=== PATIENT | female | born 1975 | race American Indian/Alaskan Native ===

== ENCOUNTER 2017-01-29 10:30 | Inpatient (IN) | payer OTHER ==
[2017-01-29 11:29] LABS: Basophils % (Auto) 0.8 % (0.0-1.8); Mean Corpuscular HGB Conc 30 % (30-34); Platelet Count 303 K/mm3 (140-440); Red Cell Distribution Width 17.6 % (13.2-15.2); White Blood Count 13.7 K/mm3 (4.5-11.0)
[2017-01-29 11:34] LABS: Bilirubin,Urine NEG (Negative); Blood,Urine MOD (Negative); Ketones,Urine TR mg/dL (Negative); Leukocyte Esterase,Urine NEG (Negative); Mucus,Urine 1+ /HPF; Nitrite,Urine NEG (Negative); Urobilinogen,Urine < 2.0 mg/dL (<2.0)
[2017-01-29 11:35] LABS: Hematocrit 35.5 % (30.3-42.9); Hemoglobin 10.5 gm/dl (10.1-14.3)
[2017-01-29 11:36] LABS: Mean Corpuscular Hemoglobin 21 pg (28-32); Mean Corpuscular Volume 70 fl (79-97)
[2017-01-29 11:40] LABS: Anion Gap 18 mmol/L; Blood Urea Nitrogen 6 mg/dL (7-17); Calcium 9.6 mg/dL (8.4-10.2); Carbon Dioxide 23 mmol/L (22-30); Chloride 98.7 mmol/L (98-107); Glucose 126 mg/dL (65-100); Potassium 3.6 mmol/L (3.6-5.0); Sodium 136 mmol/L (137-145)
[2017-01-29] MEDS ORDERED: NACL 0.9% 1000 ML 1,000 ML IV ONE (12:43)
[2017-01-29] MEDS ORDERED: ZOFRAN IV ONE (12:43)
[2017-01-29] MEDS ORDERED: SUBLIMAZE IV ONE (12:43)
[2017-01-29] MEDS ORDERED: NACL ONE (12:46)
--- NOTE | 2017-01-29 12:51 | Emergency Department Report ---
HPI - General Chief Complaint: Nausea/Vomiting/Diarrhea Time Seen by Provider: 01/29/17 12:34 - HPI HPI: Room 1 The patient is a 41-year-old female presenting with a chief complaint of abdominal pain. Patient states her symptoms began this morning at 03:00. Patient states she developed upper abdominal pain associated with nausea vomiting and diarrhea. Patient describes pain as sharp in nature and states that it does not radiate. Patient denies any history of fever. Patient denies sick contacts. Patient denies dysuria or hematuria. The patient currently gives her pain a score of 10/10 Location: Abdomen Duration: Constant since 03:00 Quality: Sharp Severity: 10/10 Modifying factors: [see above] Context: [see above] Mode of transportation: [not driving] ED Past Medical Hx - Past Medical History Previous Medical History?: Yes Hx Headaches / Migraines: Yes - Surgical History Past Surgical History?: Yes Hx Cholecystectomy: Yes Additional Surgical History: 1994, 1998, 2000. Gall bladder 2001 - Family History Family history: no significant - Social History Smoking Status: Current Every Day Smoker Substance Use Type: Alcohol (occasional) - Medications Home Medications: Home Medications Medication Instructions Recorded Confirmed Last Taken Type Pantoprazole [Protonix TAB] 40 mg PO QHS #30 tablet 10/12/15 Unknown Rx ED Review of Systems ROS: Stated complaint: N/V Other details as noted in HPI Comment: All other systems reviewed and negative Constitutional: denies: chills, fever Eyes: denies: eye pain, eye discharge, vision change ENT: denies: ear pain, throat pain Respiratory: denies: cough, shortness of breath, wheezing Cardiovascular: denies: chest pain, palpitations Endocrine: no symptoms reported Gastrointestinal: abdominal pain, nausea, vomiting, diarrhea Genitourinary: denies: urgency, dysuria, discharge Musculoskeletal: denies: back pain, joint swelling, arthralgia Skin: denies: rash, lesions Neurological: denies: headache, weakness, paresthesias Psychiatric: denies: anxiety, depression Hematological/Lymphatic: denies: easy bleeding, easy bruising Physical Exam - Physical Exam Vital Signs: Vital Signs 01/29/17 10:48 Temperature 97.6 F Pulse Rate 53 L Respiratory 18 Rate Blood Pressure 161/89 O2 Sat by Pulse 99 Oximetry Physical Exam: GENERAL: The patient is well-developed well-nourished female lying on stretcher appearing to be in moderate discomfort. [] HEENT: Normocephalic. Atraumatic. Extraocular motions are intact. Patient has moist mucous membranes. NECK: Supple. Trachea midline CHEST/LUNGS: Clear to auscultation. There is no respiratory distress noted. HEART/CARDIOVASCULAR: Regular. There is no tachycardia. There is no gallop rub or murmur. ABDOMEN: Abdomen is soft, with diffuse discomfort to palpation but no rebound or guarding.. Patient has normal bowel sounds. There is no abdominal distention. SKIN: There is no rash. There is no edema. There is no diaphoresis. NEURO: The patient is awake, alert, and oriented. The patient is cooperative. T The patient has normal speech MUSCULOSKELETAL: There is no evidence of acute injury. ED Course Vital Signs 01/29/17 10:48 Temperature 97.6 F Pulse Rate 53 L Respiratory 18 Rate Blood Pressure 161/89 O2 Sat by Pulse 99 Oximetry - Consultations Consultation #1: 01/29/17 14:[address] Murillo-will take the patient to the OR. Recommends administering Levaquin and Flagyl ED Medical Decision Making - Lab Data Result diagrams: 01/29/17 11:12 01/29/17 11:12 Laboratory Tests 01/29/17 01/29/17 01/29/17 11:12 11:12 11:12 WBC 13.7 H RBC 5.10 H Hgb 10.5 Hct 35.5 MCV 70 L MCH 21 L MCHC 30 RDW 17.6 H Plt Count 303 Lymph % (Auto) 9.4 L Norman % (Auto) 3.8 Eos % (Auto) 0.0 Baso % (Auto) 0.8 Lymph # 1.3 Norman # 0.5 Eos # 0.0 Baso # 0.1 Seg Neutrophils % 86.0 H Seg Neutrophils # 11.8 H Sodium 136 L Potassium 3.6 Chloride 98.7 Carbon Dioxide 23 Anion Gap 18 BUN 6 L Creatinine 0.6 L Estimated GFR > 60 BUN/Creatinine Ratio 10.00 Glucose 126 H Calcium 9.6 Total Bilirubin 0.4 Direct Bilirubin < 0.2 AST 22 ALT 12 Alkaline Phosphatase 78 Total Protein 8.1 Albumin 4.6 Albumin/Globulin Ratio 1.3 Amylase 107 Lipase 23 Urine Color Urine Turbidity Urine pH Ur Specific [place] Urine Protein Urine Glucose (UA) Urine Ketones Urine Blood Urine Nitrite Urine Bilirubin Urine Urobilinogen Ur Leukocyte Esterase Urine WBC (Auto) Urine RBC (Auto) U Epithel Cells (Auto) Urine Mucus Urine HCG, Qual 01/29/17 01/29/17 11:16 11:16 WBC RBC Hgb Hct MCV MCH MCHC RDW Plt Count Lymph % (Auto) Norman % (Auto) Eos % (Auto) Baso % (Auto) Lymph # Norman # Eos # Baso # Seg Neutrophils % Seg Neutrophils # Sodium Potassium Chloride Carbon Dioxide Anion Gap BUN Creatinine Estimated GFR BUN/Creatinine Ratio Glucose Calcium Total Bilirubin Direct Bilirubin AST ALT Alkaline Phosphatase Total Protein Albumin Albumin/Globulin Ratio Amylase Lipase Urine Color Yellow Urine Turbidity Clear Urine pH 7.0 Ur Specific [place] 1.019 Urine Protein 100 mg/dl Urine Glucose (UA) 50 Urine Ketones Tr Urine Blood Mod Urine Nitrite Neg Urine Bilirubin Neg Urine Urobilinogen < 2.0 Ur Leukocyte Esterase Neg Urine WBC (Auto) 2.0 Urine RBC (Auto) 15.0 U Epithel Cells (Auto) 2.0 Urine Mucus 1+ Urine HCG, Qual Negative - Radiology Data Radiology results: report reviewed (CT abdomen pelvis), image reviewed (CT abdomen pelvis) CT abdomen and pelvis (discussed with radiologist)-acute appendicitis. Appendix is dilated approximately 9 mm with surrounding stranding - Differential Diagnosis pancreatitis, gastroenteritis, colitis, Critical care attestation.: If time is entered above; I have spent that time in minutes in the direct care of this critically ill patient, excluding procedure time. ED Disposition Clinical Impression: Acute appendicitis, Acute abdominal pain Disposition: OP ADMITTED IP TO THIS HOSP Is pt being admited?: Yes Does the pt Need Aspirin: No Condition: Serious Referrals: PRIMARY CARE, [Primary Care Provider] - 3-5 Days Time of Disposition: 14:19 (surgery paged)
[2017-01-29 13:00] LABS: Alanine Aminotransferase 12 units/L (7-56); Albumin 4.6 g/dL (3.9-5); Albumin/Globulin Ratio 1.3 %; Alkaline Phosphatase 78 units/L (35-129); Amylase 107 units/L (27-131); Bilirubin,Total 0.4 mg/dL (0.1-1.2); Lipase 23 units/L (13-60); Total Protein 8.1 g/dL (6.3-8.2)
[2017-01-29 13:01] LABS: Bilirubin,Direct < 0.2 mg/dL (0-0.2)
--- NOTE | 2017-01-29 14:21 | Cat Scan Report ---
FINAL REPORT PROCEDURE: CT ABDOMEN PELVIS W CON TECHNIQUE: Computerized axial tomography of the abdomen and pelvis was performed after the IV injection of iodinated nonionic contrast. HISTORY: diffuse abnormal pain. Nausea and vomiting COMPARISON: No prior studies are available for comparison. FINDINGS: Visualized lower thorax: No significant abnormality. Liver: Normal size and attenuation. Spleen: Normal size and attenuation. Gallbladder and biliary system: The gallbladder is absent. No dilatation of the biliary ductal system.. Pancreas: Normal. Adrenals: Normal. Kidneys: Both kidneys have normal size. No hydronephrosis. No renal stones or masses. GI tract: The stomach is normal. The small bowel has a normal caliber. No obstruction, ileus or enteritis. Evaluation of the bowel is slightly limited without oral contrast. The appendix is slightly dilated up to 9 millimeters with minimal periappendiceal fat stranding. No fluid collection, abscess or free air is seen. The colon has a normal appearance.. Lymph nodes and mesentery: Normal. Vasculature: Normal. Bladder: Normal. Reproductive organs: The uterus is normal. No pelvic masses are identified. Minimal fluid in the lower pelvis is noted.. Peritoneum: Minimal fluid lower pelvis.. Musculoskeletal structures: No significant abnormality. Other: None. IMPRESSION: The appendix is dilated up to 9 millimeters with minimal periappendiceal fat stranding. Acute appendicitis is suspected. No complication at this time. No evidence of intestinal or urinary tract obstruction. Previous cholecystectomy. The above critical results are discussed with the patient's ER physician Dr. Greene, at the time of dictation 1315 central standard time on 01/29/2017
[2017-01-29] MEDS ORDERED: LEVAQUIN 500MG/100ML 500 MG/100 ML BAG IV ONE (14:27)
[2017-01-29] MEDS ORDERED: FLAGYL 500 MG/100 ML 500 MG/100 ML BAG IV SCH (15:00)
[2017-01-29] MEDS ORDERED: QUELICIN ONE (15:34)
[2017-01-29] MEDS ORDERED: XYLOCAINE MPF 2% ONE (15:34)
[2017-01-29] MEDS ORDERED: ZEMURON IV ONE (15:34)
[2017-01-29] MEDS ORDERED: DIPRIVAN 10 MG/ML IV ONE (15:35)
[2017-01-29] MEDS ORDERED: DILAUDID ONE (15:35)
[2017-01-29] MEDS ORDERED: SUBLIMAZE ONE (15:35)
[2017-01-29] MEDS ORDERED: FLAGYL 500 MG/100 ML 500 MG/100 ML BAG IV ONE (15:49)
[2017-01-29] MEDS ORDERED: PEPCID IV ONE (15:50)
--- NOTE | 2017-01-29 15:50 | Anesthesia Day of Surgery ---
Anesthesia Day of Surgery - Day of Surgery Patient Examined: Yes Patient H&P Reviewed: Yes Patient is NPO: Yes
[2017-01-29] MEDS ORDERED: ZOFRAN IV PRN (15:51)
--- NOTE | 2017-01-29 15:51 | Anesthesia Consultation ---
Anesthesia Consult and Med Hx Date of service: 01/29/17 - Airway Anesthetic Teeth Evaluation: Good, Chipped (top left molar) ROM Head & Neck: Adequate Mental/Hyoid Distance: Adequate Mallampati Class: Class II Intubation Access Assessment: Probably Good - Pulmonary Exam CTA: Yes - Cardiac Exam Cardiac Exam: RRR - Pre-Operative Health Status ASA Pre-Surgery Classification: ASA2, Emergency Proposed Anesthetic Plan: General - Pulmonary Hx Smoking: Yes Hx Asthma: No Hx Sleep Apnea: No - Cardiovascular System Hx Hypertension: No Hx Coronary Artery Disease: No - Central Nervous System Hx Seizures: Yes (as a child) CVA: No - Endocrine Hx Renal Disease: No Hx Cirrhosis: No Hx Hypothyroidism: No - Other Systems Hx Cancer: No Hx Obesity: No
[2017-01-29] MEDS ORDERED: LACTATED RINGERS 1,000 ML ONE ×2 (15:52→17:14)
[2017-01-29] MEDS ORDERED: REGLAN IV PRN (15:52)
[2017-01-29] MEDS ORDERED: MARCAINE 0.5% INFILTRATI ONE (16:16)
[2017-01-29] MEDS ORDERED: NACL 0.9% IR ONE (16:16)
[2017-01-29] MEDS ORDERED: NEOSTIGMINE ONE (16:26)
[2017-01-29] MEDS ORDERED: ROBINUL ONE (16:27)
[2017-01-29] MEDS ORDERED: DECADRON ONE (17:07)
[2017-01-29] MEDS: DILAUDID IV PRN ×2 (17:15→17:29)
--- NOTE | 2017-01-29 18:57 | History and Physical Report ---
ADMITTING DIAGNOSIS: Rule out appendicitis. HISTORY OF PRESENT ILLNESS: The patient is a pleasant 41-year-old female who began complaining of periumbilical abdominal pain accompanied by nausea and vomiting. Now pain is localized in the right lower quadrant of the abdomen. PAST MEDICAL HISTORY: Negative. PAST SURGICAL HISTORY: Status post laparoscopic cholecystectomy and x 3. ALLERGIES: Allergic to PENICILLIN. She is not really sure what reaction it causes, but was told she was allergic as a \\"child.\\" MEDICATIONS: Takes no medications. FAMILY HISTORY: Gout. SOCIAL HISTORY: Smokes half a pack a day for approximately 5 years. Occasional ethanol intake. REVIEW OF SYSTEMS: Noncontributory. PHYSICAL EXAMINATION: GENERAL: At this time reveals the patient to be awake, alert, cooperative, moderate discomfort, in no acute distress. VITAL SIGNS: Show her to have a blood pressure 149/49. Pulse and temperature are not recorded. HEENT: Pupils are equal and round and reactive to light and accommodation. Sclerae is nonicteric. NECK: Supple, no thyromegaly or adenopathy. CHEST: Lungs clear to auscultation and percussion. HEART: Normal sinus rhythm. No gross murmurs. ABDOMEN: Reveals to be soft, but there is localized right lower quadrant tenderness with guarding. Bowel sounds are hypoactive. EXTREMITIES: Show full range of motion x 4, no edema or cyanosis. NEUROLOGIC: Grossly within normal limits. LABORATORY DATA: Lab work at present includes a CBC which shows a white count of 13.7, H and H is 10.5 and 35.5. Electrolytes are essentially within normal limits. LFTs are also within normal limits. Amylase is 107. Lipase is 23. UA shows no nitrites. WBC is 2. CT scan of the abdomen has been performed in the Emergency Room. CT shows the appendix to be dilated with some appendiceal fat stranding acute appendicitis is suspected. IMPRESSION: At this time is that of a relatively healthy 41-year-old female rule out appendicitis. PLAN: To proceed with open appendectomy. Risks, indications, and complications have been reviewed with the patient who understands and has signed her consent. JOB# [id number] /NTS
--- NOTE | 2017-01-29 19:10 | Operative Report ---
PREOPERATIVE DIAGNOSIS: Rule out acute appendicitis. POSTOPERATIVE DIAGNOSIS: Rule out acute appendicitis. PROCEDURE: Open appendectomy. SURGEON: Pollo Solis MD ANESTHESIA: General. ESTIMATED BLOOD LOSS: Minimal. DRAINS: No drains. COMPLICATIONS: None. PROCEDURE IN DETAIL: The patient was taken to the operating room, prepped and draped in usual sterile fashion. A Maurice-Bryson type incision was made and the abdomen entered. Digital manipulation was used until the cecum was identified and pulled up into the operative field. The appendix then was also visualized and noted to be inflamed and slightly thickened though not suppurative or perforated fortunately. The mesoappendix was secured with Harmonic scalpel. The base of the appendix was doubly ligated with 2-0 Vicryl ties and the appendix removed. The appendix was swabbed for aerobic and anaerobic cultures. The patient was then placed in a reverse Trendelenburg position. The entire right lower quadrant of the abdomen was copiously irrigated and suctioned dry. The stumps were once again visualized and noted to be secured. No evidence of any bleeding or oozing noted throughout the area. The internal oblique fascia was then closed with running #1 Vicryl suture and external oblique fascia was then closed also with interrupted #1 Vicryl suture. In between areas were irrigated and dried. was then copiously irrigated and suctioned dry. Skin was loosely closed with kae and packed with Telfa leesa soaked in Betadine. 0.5% Marcaine with epinephrine was infiltrated over the fascia as well as the subcutaneous and skin for postoperative pain relief. Fluffs and pressure dressings applied. The patient tolerated the procedure well and left OR in stable condition. [facility]# [id number] /NTS
[2017-01-29] MEDS: MORPHINE IV PRN ×2 (19:43→22:41)
[2017-01-29] MEDS: FLAGYL 500 MG/100 ML 500 MG/100 ML BAG IV SCH (22:40)
[2017-01-29] MEDS: ZOFRAN IV PRN (22:41)
[2017-01-30] MEDS: MORPHINE IV PRN ×3 (02:18→10:22)
--- NOTE | 2017-01-30 03:11 | Admit Criteria Form ---
Admission Criteria Documentation: ABDOMINAL PAIN Clinical Indications for Admission to Inpatient Care (Place 'X' for any and all applicable criteria): Admission is indicated for ANY ONE of the following(1)(2)(3)(4)(5): [ ]I. Inpatient admission required rather than observation care (Also use Abdominal Pain: Observation Care, as appropriate) because of ANY ONE of the following: [ ]a) Severe pain requiring acute inpatient management [ ]b) Identification of etiology/finding that requires inpatient care (eg, aortic dissection, free air) [ ]c) Absent bowel sounds with complete ileus(6) [ ]d) Suspected toxic megacolon [ ]e) Severe electrolyte abnormalities requiring inpatient care [ ]f) High fever or infection requiring inpatient admission as indicated by ANY ONE of following(7)(8): [ ] i) Appropriate outpatient or observational care antimicrobial treatment unavailable, not effective, or not feasible [ ] ii) Documented bacteremia [ ] iii) Temperature > 104.9 degrees F (oral) [ ] iv) T >103.1 F (oral) or < 96.8 F(rectal) that does not respond to all emergency treatment measures [ ]g) Signs of intestinal obstruction [B] [ ]h) Hemodynamic instability [ ]i) IV fluid to replace significant ongoing losses (greater than 3 L/m2 per day) (12)(13) [ ]j) Percutaneous or open drainage (eg, abscess, biliary tract ) procedures [ ]k) Parenteral nutrition regimen that must be implemented on inpatient basis [ ]l) Other condition,treatment or monitoring requiring inpatient admission. [ ]II. Peritoneal signs present [ X]III. Surgery needed that cannot be performed on an ambulatory basis. [ ]IV. Evaluation requires patient to not eat or drink for extended period ( eg, more than 24 hours). [ ]V. Contraindications and/or Inappropriate clinical situations for Observational Care in patients with abdominal pain, when ANY ONE of the following is required: [ ]a) Thorough evaluation is required to prevent catastrophic events due to delays in diagnosing (e.g.Mesenteric ischemia) 1,3 [ ]b) Patient with severe pathology or with chronic symptoms unlikely to improve in the ED stay (3) [ ]. General contraindications and/or Inappropriate clinical situations for Observational Care in patients with abdominal pain, when ANY ONE of the following is required: [ ]a) Prediction of prolongation of LOS based on ANY ONE of the following may be considered as a contraindication for observational care 2, 3, 4, 5, 6, 7, 8, 9, 10, 11 [ ]i) Age > 65 yrs. [ ]ii) Patient arriving by ambulance [ ]iii) Patient with high acuity [ ]iv) Patient requiring vital sign monitoring [ ]v) Patient on IV medication [ ]b) Systolic blood pressures 180mmHg 3,12 [ ]c) Patient with altered mental status including delirium and other alteration of consciousness, (3) [ ]d) Patient whose discharge disposition will be to a custodial home or rehabilitation home should not be managed in Emergency Department Observation Unit. CMS rule requires 3 days hospital stay before such placement.3,13 [ ]e) Patient with failure to thrive due to broad array of etiologies 3,16,17 [ ]f) Inability to ambulate 3,14 Extended stay beyond goal length of stay may be needed for(2)(3): [ ]a) Persistent abdominal pain with suspected intra-abdominal process [ ]b) Diagnosed condition requiring continued stay (e.g., pancreatitis, complicated diverticulitis) [ ]c) Surgery (e.g., colectomy) The original [employer] content created by [employer] has been revised. The portions of the content which have been revised are identified through the use of italic text or in bold, and [facility] has neither reviewed nor approved the modified material.All other unmodified content is copyright [employer]. Please see references footnoted in the original [employer] edition 2016 Admission Criteria Met: Yes
[2017-01-30 06:02] LABS: Basophils % (Auto) 0.3 % (0.0-1.8); Mean Corpuscular HGB Conc 30 % (30-34); Platelet Count 250 K/mm3 (140-440); Red Blood Count 4.57 M/mm3 (3.65-5.03); White Blood Count 12.7 K/mm3 (4.5-11.0)
[2017-01-30 06:05] LABS: Hematocrit 31.8 % (30.3-42.9); Hemoglobin 9.5 gm/dl (10.1-14.3); Mean Corpuscular Hemoglobin 21 pg (28-32); Mean Corpuscular Volume 70 fl (79-97)
[2017-01-30 06:19] LABS: Anion Gap 18 mmol/L; BUN/Creatinine Ratio 13.33; Blood Urea Nitrogen 8 mg/dL (7-17); Calcium 8.8 mg/dL (8.4-10.2); Carbon Dioxide 22 mmol/L (22-30); Chloride 102.2 mmol/L (98-107); Glucose 94 mg/dL (65-100); Potassium 3.5 mmol/L (3.6-5.0); Sodium 139 mmol/L (137-145)
[2017-01-30] MEDS: FLAGYL 500 MG/100 ML 500 MG/100 ML BAG IV SCH ×3 (07:09→22:55)
[2017-01-30] MEDS: D5W/0.45% NACL/KCL 30 MEQ 30 MEQ/1,000 ML BAG IV SCH (07:10)
[2017-01-30] MEDS: LEVAQUIN 500MG/100ML 500 MG/100 ML BAG IV SCH (09:43)
--- NOTE | 2017-01-30 13:12 | Progress Note ---
Assessment and Plan POD # 1 Pt feeling better. c/o incisional pain. Abd soft. dressings dry. - BS stable swith to dilaudid monitor h/h begin wd care in am Selected Entries 01/30/17 07:00 Temperature 98.4 F Pulse Rate [ 52 L From Monitor] Respiratory 16 Rate Blood Pressure 130/73 [Right Arm] Laboratory Tests 01/29/17 01/30/17 01/30/17 11:12 04:21 04:21 WBC 13.7 H 12.7 H Hgb 10.5 9.5 L Hct 35.5 31.8 Sodium 139 Potassium 3.5 L Chloride 102.2 Carbon Dioxide 22 BUN 8 Creatinine 0.6 L Objective Vital Signs - 12hr 01/30/17 01/30/17 04:00 07:00 Temperature 98.4 F 98.4 F Pulse Rate [ 50 L 52 L From Monitor] Respiratory 16 16 Rate Blood Pressure 130/69 130/73 [Right Arm] O2 Sat by Pulse 100 100 Oximetry - Labs 01/30/17 04:21 01/30/17 04:21 Diabetes panel 01/30/17 Range/Units 04:21 Sodium 139 (137-145) mmol/L Potassium 3.5 L (3.6-5.0) mmol/L Chloride 102.2 (98-107) mmol/L Carbon Dioxide 22 (22-30) mmol/L BUN 8 (7-17) mg/dL Creatinine 0.6 L (0.7-1.2) mg/dL Glucose 94 (65-100) mg/dL Calcium 8.8 (8.4-10.2) mg/dL Calcium panel 01/30/17 Range/Units 04:21 Calcium 8.8 (8.4-10.2) mg/dL Pituitary panel 01/30/17 Range/Units 04:21 Sodium 139 (137-145) mmol/L Potassium 3.5 L (3.6-5.0) mmol/L Chloride 102.2 (98-107) mmol/L Carbon Dioxide 22 (22-30) mmol/L BUN 8 (7-17) mg/dL Creatinine 0.6 L (0.7-1.2) mg/dL Glucose 94 (65-100) mg/dL Calcium 8.8 (8.4-10.2) mg/dL Adrenal panel 01/30/17 Range/Units 04:21 Sodium 139 (137-145) mmol/L Potassium 3.5 L (3.6-5.0) mmol/L Chloride 102.2 (98-107) mmol/L Carbon Dioxide 22 (22-30) mmol/L BUN 8 (7-17) mg/dL Creatinine 0.6 L (0.7-1.2) mg/dL Glucose 94 (65-100) mg/dL Calcium 8.8 (8.4-10.2) mg/dL
[2017-01-30] MEDS: DILAUDID IV PRN ×2 (15:30→19:48)
[2017-01-30] MEDS: ZOFRAN IV PRN (23:40)
[2017-01-31] MEDS: DILAUDID IV PRN ×5 (00:45→21:51)
[2017-01-31] MEDS: D5W/0.45% NACL/KCL 30 MEQ 30 MEQ/1,000 ML BAG IV SCH ×2 (04:45→16:33)
[2017-01-31] MEDS: FLAGYL 500 MG/100 ML 500 MG/100 ML BAG IV SCH ×3 (06:13→21:52)
[2017-01-31 07:51] LABS: Basophils % (Auto) 0.7 % (0.0-1.8); Eosinophils % (Auto) 0.3 % (0.0-4.3); Hematocrit 28.3 % (30.3-42.9); Hemoglobin 8.5 gm/dl (10.1-14.3); Mean Corpuscular HGB Conc 30 % (30-34); Platelet Count 218 K/mm3 (140-440); Red Blood Count 4.07 M/mm3 (3.65-5.03); Red Cell Distribution Width 17.7 % (13.2-15.2); White Blood Count 8.3 K/mm3 (4.5-11.0)
[2017-01-31 07:59] LABS: Mean Corpuscular Hemoglobin 21 pg (28-32); Mean Corpuscular Volume 70 fl (79-97)
--- NOTE | 2017-01-31 09:30 | Post Anesthesia Evaluation ---
- Post Anesthesia Evaluation Patient Participated: Yes Airway Patent: Yes Stable Respiratory Function: Yes Nausea/Vomiting: No Temp > 96.8F: Yes Pain Manageable: Yes Adequeate Hydration: Yes Anesthesia Complications: No Block Receding Appropriately: Not Applicable Patient on Ventilator: No
[2017-01-31] MEDS: LEVAQUIN 500MG/100ML 500 MG/100 ML BAG IV SCH (10:36)
--- NOTE | 2017-01-31 12:48 | Progress Note ---
Assessment and Plan POD #2 Pt feeling well neg flatus. Abd soft, non tender. positive BS lower h/h noted. VSS repeat h/h now. attempt cl liq diet Selected Entries 01/31/17 01/31/17 07:00 11:00 Temperature 98 F Pulse Rate [ 60 From Monitor] Blood Pressure 121/77 [Right Arm] Laboratory Tests 01/30/17 01/31/17 04:21 07:04 WBC 12.7 H 8.3 Hgb 9.5 L 8.5 L Hct 31.8 28.3 L Objective Vital Signs - 12hr 01/31/17 01/31/17 01/31/17 04:00 07:00 11:00 Temperature 98.4 F 97.6 F 98 F Pulse Rate [ 57 L 60 61 From Monitor] Respiratory 16 16 18 Rate Blood Pressure 128/85 117/73 121/77 [Right Arm] O2 Sat by Pulse 99 97 Oximetry - Labs 01/31/17 07:04 01/30/17 04:21
[2017-01-31] MEDS: ZOFRAN IV PRN ×2 (13:11→21:52)
[2017-01-31 14:17] LABS: Hematocrit TNR % (30.3-42.9); Hemoglobin TNR gm/dl (10.1-14.3); Mean Corpuscular HGB Conc TNR % (30-34); Mean Corpuscular Hemoglobin TNR pg (28-32); Mean Corpuscular Volume TNR fl (79-97); Mean Platelet Volume TNR fl (6-12); Platelet Count TNR K/mm3 (140-440); Red Blood Count TNR M/mm3 (3.65-5.03); Red Cell Distribution Width TNR % (13.2-15.2)
[2017-01-31 15:18] LABS: Eosinophils % (Auto) 0.5 % (0.0-4.3)
[2017-01-31 15:25] LABS: Basophils % (Auto) 0.8 % (0.0-1.8); Diff Status Complete; Hematocrit 33.3 % (30.3-42.9); Hemoglobin 10.1 gm/dl (10.1-14.3); Mean Corpuscular HGB Conc 30 % (30-34); Mean Corpuscular Hemoglobin 21 pg (28-32); Mean Corpuscular Volume 70 fl (79-97); Platelet Count 282 K/mm3 (140-440); Red Blood Count 4.79 M/mm3 (3.65-5.03); Red Cell Distribution Width 17.5 % (13.2-15.2); White Blood Count 9.4 K/mm3 (4.5-11.0)
[2017-01-31 15:35] LABS: White Blood Count TNR K/mm3 (4.5-11.0)
[2017-02-01] MEDS: DILAUDID IV PRN ×4 (02:39→23:38)
[2017-02-01] MEDS: D5W/0.45% NACL/KCL 30 MEQ 30 MEQ/1,000 ML BAG IV SCH (02:39)
[2017-02-01] MEDS: FLAGYL 500 MG/100 ML 500 MG/100 ML BAG IV SCH ×3 (06:06→23:56)
[2017-02-01 07:56] LABS: Basophils % (Auto) 0.7 % (0.0-1.8); Eosinophils % (Auto) 1.2 % (0.0-4.3); Mean Corpuscular HGB Conc 30 % (30-34); Mean Corpuscular Volume 70 fl (79-97); Platelet Count 200 K/mm3 (140-440); Red Blood Count 4.06 M/mm3 (3.65-5.03); Red Cell Distribution Width 17.5 % (13.2-15.2); White Blood Count 6.8 K/mm3 (4.5-11.0)
[2017-02-01 08:17] LABS: Hematocrit 28.5 % (30.3-42.9); Hemoglobin 8.5 gm/dl (10.1-14.3); Mean Corpuscular Hemoglobin 21 pg (28-32)
[2017-02-01] MEDS: LEVAQUIN 500MG/100ML 500 MG/100 ML BAG IV SCH (10:18)
[2017-02-01] MEDS: ZOFRAN IV PRN ×2 (10:31→23:36)
--- NOTE | 2017-02-01 13:08 | Progress Note ---
Assessment and Plan POD #3 Pt feeling well. sandra cl liq diet. -flatus Abd soft. dressings dry. hypoactive BS lowering of h/h (pt states has just completed "heavy" menstruation) surgically stable bleeding? transfuse 2 units prbc advance to full liq diet home health arrangements for local care f/u cbc in am Selected Entries 02/01/17 08:00 Temperature 98.9 F Pulse Rate [ 69 From Monitor] Respiratory 20 Rate Blood Pressure 125/93 [Right Arm] Laboratory Tests 01/31/17 02/01/17 13:18 07:28 WBC TNR 6.8 Hgb TNR 8.5 L Hct TNR 28.5 L Objective Vital Signs - 12hr 02/01/17 08:00 Temperature 98.9 F Pulse Rate [ 69 From Monitor] Respiratory 20 Rate Blood Pressure 125/93 [Right Arm] O2 Sat by Pulse 100 Oximetry - Labs 02/01/17 07:28 01/30/17 04:21
[2017-02-01] MEDS ORDERED: NACL 0.9% 500 ML 500 ML IV ONE (14:00)
[2017-02-01] MEDS ORDERED: NACL ONE (16:51)
[2017-02-01] MEDS ORDERED: NACL 0.9% 500 ML 500 ML ONE (17:19)
[2017-02-02] MEDS: DILAUDID IV PRN ×2 (05:54→10:09)
[2017-02-02] MEDS: ZOFRAN IV PRN (06:00)
[2017-02-02] MEDS: FLAGYL 500 MG/100 ML 500 MG/100 ML BAG IV SCH (06:04)
[2017-02-02 07:24] LABS: Basophils % (Auto) 1.4 % (0.0-1.8); Eosinophils % (Auto) 2.1 % (0.0-4.3); Hemoglobin 10.5 gm/dl (10.1-14.3); Mean Corpuscular HGB Conc 31 % (30-34); Mean Corpuscular Volume 72 fl (79-97); Platelet Count 219 K/mm3 (140-440); Red Blood Count 4.72 M/mm3 (3.65-5.03); Red Cell Distribution Width 19.6 % (13.2-15.2); White Blood Count 7.5 K/mm3 (4.5-11.0)
[2017-02-02 07:28] LABS: Mean Corpuscular Hemoglobin 22 pg (28-32)
--- NOTE | 2017-02-02 07:50 | Progress Note ---
Assessment and Plan PODd # 4 Pt feeling well. sandra diet Abd soft. dressings dry. Wd care initiated surgically stable advance diet awaiting 4 hr h/h for d/c Selected Entries 02/01/17 22:56 Temperature 98.6 F Pulse Rate 68 Respiratory 18 Rate Blood Pressure 121/75 Laboratory Tests 02/01/17 02/02/17 07:28 07:16 WBC 6.8 Hgb 8.5 L 10.5 Hct 28.5 L 34.0 Objective Vital Signs - 12hr 02/01/17 02/01/17 02/01/17 20:10 20:36 20:41 Temperature 98.5 F 98.2 F 98.6 F Pulse Rate 70 80 68 Pulse Rate [ From Monitor] Respiratory 18 18 18 Rate Blood Pressure 136/80 138/88 135/80 Blood Pressure [Right Arm] O2 Sat by Pulse 100 100 100 Oximetry 02/01/17 02/01/17 02/01/17 20:56 21:06 21:26 Temperature 98.5 F 98.6 F 98.2 F Pulse Rate 62 70 62 Pulse Rate [ From Monitor] Respiratory 18 18 18 Rate Blood Pressure 121/76 137/80 124/78 Blood Pressure [Right Arm] O2 Sat by Pulse 100 100 100 Oximetry 02/01/17 02/01/17 02/01/17 21:56 22:04 22:26 Temperature 98.6 F 98.2 F 98.6 F Pulse Rate 63 68 Pulse Rate [ 64 From Monitor] Respiratory 18 20 18 Rate Blood Pressure 111/74 121/75 Blood Pressure 134/85 [Right Arm] O2 Sat by Pulse 100 97 100 Oximetry 02/01/17 22:56 Temperature 98.6 F Pulse Rate 68 Pulse Rate [ From Monitor] Respiratory 18 Rate Blood Pressure 121/75 Blood Pressure [Right Arm] O2 Sat by Pulse 100 Oximetry - Labs 02/02/17 07:16 01/30/17 04:21
[2017-02-02 09:18] VITALS: BP 145/97
[2017-02-02] MEDS: LEVAQUIN 500MG/100ML 500 MG/100 ML BAG IV SCH (10:10)
--- NOTE | 2017-02-02 11:12 | Discharge Summary ---
Providers - Providers Date of Admission: 01/29/17 16:55 Attending physician: JESSICA QUINTANILLA 01/29/17 14:29 Consult to Physician [CONS] Stat Consulting Provider: JESSICA QUINTANILLA Reason For Exam: acute appendicitis Place consult to:: phone Notified:: y 01/30/17 13:13 Consult to Wound/ET Nurse [CONS] Routine Reason For Exam: wound eval 02/01/17 12:18 Consult to Case Management [CONS] Routine Services Needed at Discharge: Home Health Services Notified:: DELIVERY ROOM CLERK Additional Physician Instructions: home health for local care. Rx plan as per ET nurse Primary care physician: SENIOR LOSS CONTROL SPECIALIST Hospitalization Condition: Good Disposition: DISCHARGED TO HOME OR SELFCARE Core Measure Documentation - Palliative Care Palliative Care/ Comfort Measures: Not Applicable - Core Measures Any of the following diagnoses?: none Exam - Constitutional Vitals: Temp Pulse Resp BP Pulse Ox 98.7 F 52 L 18 145/97 100 02/02/17 09:00 02/02/17 09:00 02/02/17 09:00 02/02/17 09:00 02/02/17 09:00 Plan Activity: other (february d/c today in f/u h/h stable. call if any N, V, abd pain or fever. rto tues) Weight Bearing Status: Partial Weight Bearing (no lifting over 5 lbs x 3 wks) Diet: regular Wound: keep clean and dry (x 3 days) Additional Instructions: aleve 1 po q 6-8 hrs for breakthrough pain. home health for local care Follow up with: JESSICA QUINTANILLA MD [Staff Physician] - 02/07/17
[2017-02-02 11:47] LABS: Hematocrit 37.2 % (30.3-42.9); Hemoglobin 11.5 gm/dl (10.1-14.3); Mean Corpuscular HGB Conc 31 % (30-34); Mean Corpuscular Volume 73 fl (79-97); Platelet Count 242 K/mm3 (140-440); Red Cell Distribution Width 19.5 % (13.2-15.2); White Blood Count 8.5 K/mm3 (4.5-11.0)
[2017-02-02 11:58] LABS: Mean Corpuscular Hemoglobin 23 pg (28-32)
--- NOTE | 2017-02-02 13:31 | Discharge Summary ---
DISCHARGE DIAGNOSIS: Acute appendicitis. PROCEDURE WHILE IN HOSPITAL: Appendectomy. HOSPITAL COURSE: The patient is a 41-year-old female who presented to the Emergency Room with recent onset of right lower quadrant abdominal pain. A CT scan of the abdomen was consistent with appendicitis. The patient's past medical history was essentially negative. Her past surgical history included laparoscopic cholecystectomy and 3 C-sections. At this time, the patient was taken to surgery where she underwent an open appendectomy without incident. Her postoperative course has been essentially unremarkable. The patient has been kept on IV antibiotics throughout her hospitalization. She has remained afebrile throughout. Most recent lab work includes a CBC which shows white count of 7.5. The patient's admitting white count was 12.7. Her H and H noted to drop some from 10.1 and 33.3 down to 8.5 and 28.5. The patient states she is currently menstruating and she has heavy menstrual cycles. However, we did transfuse 2 units of packed RBCs yesterday and her H and H this morning was 10.5 and 34.0. Vital signs have always remained stable with a low pulse of 52, blood pressure was 145/97. We are currently waiting her 4 hour H and H to ensure that is stable prior to discharge. The patient is currently started on a solid regular diet this morning, which again she is tolerating well. Her abdomen is soft and nontender. She has no complaints. The patient has been instructed to call me immediately if she has any evidence of nausea, vomiting, abdominal pain, or fever. If not, the patient will follow up in the office on Monday. She is also being discharged on p.o. Levaquin and [place]. Again, her discharge is pending followup H and H. JOB# [id number] [place]
== END 2017-02-02 13:10 | disposition home or self-care (01) | DRG 343 ==
LOC: ED 10:30 → OR 10:30 → EDSTATUS 15:55 → 2B-SURG 16:55
PROVIDERS: ADMIT Surgery; ATTEND Surgery
PROC: 0DTJ0ZZ Resection of Appendix, Open Approach (ICD-10-PCS; principal; 2017-01-29)
PROC: 30233N1 Transfusion of Nonautologous Red Blood Cells into Peripheral Vein, Percutaneous Approach (ICD-10-PCS; 2017-02-01)
DX: K35.80 Unspecified acute appendicitis (principal); F17.210 Nicotine dependence, cigarettes, uncomplicated; Z88.0 Allergy status to penicillin; Z90.49 Acquired absence of other specified parts of digestive tract; Z84.89 Family history of other specified conditions
CPT/HCPCS: 36415; 74177; 80048; 80074; 81001; 81025; 82150; 83690; 85025; 86850; 86900; 86901; 86920; 87075; 87116; 88304; 99406; J0330; J1100; J1170; J1956; J2270; J2405; J2704; J2710; J3010; J7030; J7040; J7120; P9016; Q9967